=== PATIENT | female | born 1965 | race Hispanic/Latino ===

== ENCOUNTER 2023-11-20 09:22 | Emergency (ER) | payer SELFPAY ==
[~2023-11-20] VITALS: Ht 149.9 cm; Wt 72.1 kg
[2023-11-20] MEDS: CYCLOBENZAPRINE HCL 10 MG TABLET PO ONE (10:37)
[2023-11-20] MEDS: 0.9%NACL 1000ML 1,000 ML IV ONE (10:37)
[2023-11-20] MEDS: acetaMINOPHEN 500 MG TABLET PO ONE (10:37)
[2023-11-20 10:51] LABS: BASOPHILS # (AUTO) 0.02 K/uL (0.00-0.20); BASOPHILS % (AUTO) 0.4 % (0.0-5.0); EOSINOPHILS # (AUTO) 0.03 K/uL (0.00-0.70); EOSINOPHILS % (AUTO) 0.6 % (0.0-8.0); HEMATOCRIT 40.8 % (36-48); IMMATURE GRANULOCYTE ABSOLUTE 0.01 K/uL (0-1); LYMPHOCYTES # (AUTO) 1.1 K/uL (1.0-4.8); LYMPHOCYTES % (AUTO) 20.8 % (21.0-51.0); MEAN CORPUSCULAR HEMOGLOBIN 29.3 pg (27.0-33.0); MEAN CORPUSCULAR HGB CONC 33.6 g/dL (32.0-36.0); MEAN CORPUSCULAR VOLUME 87.2 fL (79-99); MONOCYTES # (AUTO) 0.3 K/uL (0.1-1.0); NEUTROPHILS # (AUTO) 3.7 K/uL (1.8-7.7); PLATELET COUNT (AUTO) 174 K/uL (130-400); RED BLOOD CELL COUNT(AUTO) 4.68 MIL/uL (4.00-5.50); RED CELL DISTRIBUTION WIDTH 12.7 % (11.0-15.5); WHITE BLOOD COUNT (AUTO) 5.1 K/uL (4.8-10.8)
[2023-11-20 11:33] LABS: ADD UA MICROSCOPIC NO; APPEARANCE,URINE CLEAR (CLEAR); BILIRUBIN,URINE NEGATIVE (NEGATIVE); COLOR,URINE COLORLESS (YELLOW); GLUCOSE, URINE (UA) NEGATIVE (NEGATIVE); KETONES,URINE NEGATIVE (NEGATIVE); LEUKOCYTE ESTERASE ,URINE NEGATIVE Leu/uL (NEGATIVE); NITRATE,URINE NEGATIVE (NEGATIVE); OCCULT BLOOD,URINE NEGATIVE (NEGATIVE); PH,URINE 7.5 (5.0-8.0); PROTEIN,URINE NEGATIVE (NEGATIVE); UROBILINOGEN,URINE 0.2 mg/dL (0.2-1.0)
[2023-11-20 12:15] LABS: ALBUMIN 4.3 g/dL (3.5-5.0); BILIRUBIN,TOTAL 0.5 mg/dL (0.2-1.0); CREATININE 0.5 mg/dL (0.5-1.0); POTASSIUM 3.8 mmol/L (3.5-5.1); TOTAL PROTEIN, SERUM 8.6 g/dL (6.0-8.3)
[2023-11-20] MEDS ORDERED: CYCL10TA16 PO (14:00)
[2023-11-20 14:09] VITALS: BP 140/86; PULSE 80; RESP 18; TEMP 97.9; O2SAT 98
== END 2023-11-20 14:14 | disposition home or self-care (01) ==
LOC: EDH 09:22
DX: R51.9 Headache, unspecified (principal); R07.89 Other chest pain; R11.0 Nausea; R42 Dizziness and giddiness; H92.01 Otalgia, right ear; E11.9 Type 2 diabetes mellitus without complications; I10 Essential (primary) hypertension; F32.A Depression, unspecified; Z90.710 Acquired absence of both cervix and uterus
CPT/HCPCS: 99284; 96360; 70450; 84484; 80053; 85025; 81003; 36415; 93005; J7030

== ENCOUNTER 2025-01-23 12:07 | Emergency (ER) | payer SELFPAY ==
[~2025-01-23] VITALS: Ht 149.9 cm; Wt 70.8 kg
--- NOTE | 2025-01-23 13:57 | NUR ---
ABSCESS DRAINED, PT TOLERATED WELL
--- NOTE | 2025-01-23 14:21 | ERN ---
General Chief Complaint: Abscess Stated Complaint: BOIL Time Seen by MD: 12:18 Time Seen by Midlevel: 12:18 Source: patient History of Present Illness Initial Comments 59-year-old female presents with an abscess to her chest wall. Patient states the abscess initially started with a small pimple and progressively worsened. She denies any fever, chills, or any other symptoms at this time. Allergies: Coded Allergies: No Known Allergies (Unverified Allergy, Unknown, 11/20/23) Home Meds Active Scripts Sulfamethoxazole/Trimethoprim (Bactrim Ds Tablet) 800 Mg-160 Mg Tablet, 1 TAB PO BID for 7 Days, #14 TAB 0 Refills Prov:VENESSA SANTANA 01/23/25 Cyclobenzaprine HCl (Flexeril) 10 Mg Tab, 10 MG PO [id number] PRN for PAIN for 7 Days, #14 TAB Prov:DANICA GOLD MD 11/20/23 Past Medical History Past Medical History: Diabetes-Type II, High Cholesterol Past Surgical History: Hysterectomy ROS Dictation CONSTITUTIONAL: Negative except for HPI HEAD/FACE: Negative except for HPI EENT: Negative except for HPI RESPIRATORY: Negative except for HPI GASTROINTESTINAL/ABDOMINAL: Negative except for HPI GENITOURINARY: Negative except for HPI MUSCULOSKELETAL: Negative except for HPI INTEGUMENTARY: Negative except for HPI NEUROLOGICAL/PSYCH: Negative except for HPI HEMATOLOGIC/LYMPHATIC: Negative except for HPI All Systems Negative, Except as noted above. 13 point review of systems assessed and all negative except for above. Physical Exam Physical Exam Dictation Vital Signs reviewed General Appearance: Alert, oriented x 3, no acute distress, well developed, nourished. Head and Face: non-traumatic. Eyes: PERRL, pink conjunctivas, eyelid no trauma, anterior chamber with arcus senilis. Ears: Pinnas intact and no signs of trauma or erythema ear canals clear and no discharge TM no erythema Nose: No discharge, no bleeding. Oropharynx: Mouth normal, tongue pink, pharynx clear,no erythema, tonsils no exudates, no abscesses noted, mucous membrane moist Neck: Supple, non-tender, no thyromegaly, no masses, no JVD, no bruits Breast:Deferred Chest:No tenderness, no crepitus, no paradoxical movement, no retractions Lungs:Clear, well-ventilated, symmetric, no rales, no wheezing, no rhonchi, no stridor, good breath sounds bilaterally Heart: Regular rate, regular rhythm, no murmur, no gallops Vascular: no peripheral edema, Abdomen: Soft, positive bowel sounds, nondistended, no guarding, nontender, no rebound, no masses no hepatomegaly, no splenomegaly, no Yepez's sign, no hernias. Rectal: Deferred Genital: Deferred Neurological: Normal speech, motor function intact, sensory function intact Musculoskeletal: Neck nontender, full range of motion, back nontender, full range of motion, Extremities: nontender, full range of motion Skin: There is a 2 x 2 abscess to the chest wall with surrounding erythema Lymphatic: Deferred MDM MDM: 59-year-old female presents with a chest wall abscess. There is surrounding erythema and induration. An incision and drainage was performed with a minimal return. Patient was started on antibiotics. Strict return precautions given Differential diagnosis: Abscess, cellulitis, lipoma There are no social concerns with this patient. Prescription drug management Prescriptions will include: Bactrim Medical management and examination interpretation discussions were had by me with other qualified healthcare professionals as indicated for the patient's care. ED Course Orders Procedure Category Date Status Time Ceftriaxone 1g Vial PHA 01/23/25 Complete (Rocephine 1g Inj) 14:30 Current Medications Medications (Trade) Dose Ordered Sig/Beatriz Route PRN Reason Start Time Stop Time Status Last Admin Dose Admin Ceftriaxone Sodium (ROCEphine 1G INJ) 1 gm ONCE ONCE IM 01/23/25 14:30 01/23/25 14:28 DC 01/23/25 14:22 Vital Signs Date Time Temp Pulse Resp B/P (MAP) Pulse Ox O2 Delivery O2 Flow Rate FiO2 01/23/25 14:26 97.9 80 20 132/81 99 Room Air* 0 21 01/23/25 12:49 97.9 82 20 149/83 99 Room Air* 0 21 01/23/25 12:08 97.9 82 20 149/83 99 Room Air DX & DISP Disposition: Discharge Departure Impression: Primary Impression: Chest wall abscess Condition: Stable Scripts Sulfamethoxazole/Trimethoprim (Bactrim Ds Tablet) 800 Mg-160 Mg Tablet 1 TAB PO BID for 7 Days, #14 TAB 0 Refills Prov: VENESSA SANTANA PAC 01/23/25 Referrals: NONE (PCP) Time of Disposition: 14:20 I have reviewed the case, and I agree with, Diagnosis and Plan I performed the substantive portion of the visit. I have reviewed and personally made and approve the management plan that is documented in the note by myself or the KENNY. I acknowledge for responsibility for the patient's management plan. VENESSA SANTANA PAC Jan 23, 2025 14:21
[2025-01-23 14:26] VITALS: BP 132/81; PULSE 80; RESP 20; TEMP 97.9; O2SAT 99
--- NOTE | 2025-01-23 14:27 | NUR ---
WOUND DRESSED, PT TOLERATED WELL
== END 2025-01-23 14:28 | disposition home or self-care (01) ==
LOC: EDH 12:07
DX: L02.213 Cutaneous abscess of chest wall (principal); E11.9 Type 2 diabetes mellitus without complications; E78.00 Pure hypercholesterolemia, unspecified; Z90.710 Acquired absence of both cervix and uterus
CPT/HCPCS: 99283; 10060; 96372; J0696